=== PATIENT | female | born 1980 | race Caucasian/White ===

== ENCOUNTER → 2020-08-25 01:33 | Outpatient (CLI) | payer MEDICARE, MEDICAID, SELFPAY ==
[2020-08-25 18:53] LABS: SARS-CoV-2 RNA PCR Negative
== END ==
PROVIDERS: PCP Family Medicine; Visit Provider Internal Medicine Critical Care Medicine
DX: R68.89 Other general symptoms and signs (principal); Z20.822 Contact with and (suspected) exposure to COVID-19
CPT/HCPCS: C9803; U0003; U0005

== ENCOUNTER 2020-08-28 09:08 | Outpatient (CLI) | payer MEDICARE, MEDICAID, SELFPAY ==
--- NOTE | 2020-09-16 14:03 | WPDSLEEPSTUD ---
Sleep Study Date of Study: 08/28/20 Ordering Provider: Gorge Ovalle APRN Interpreting Physician: Joceline Stevenson MD Sleep Study Type: Split Polysomnogram Height: 1.45 m Weight: 67.807 kg Body Mass Index: 32.3 Neck Circumference (inches): 17 [place]: 15 Reason for Sleep Study Obstructive sleep apnea; needs to re-qualify for equipment; She is tired most of the time. 07/17/2014 BiPAP retitration; BMI was 40.9; pressures from / to a final pressure of 22/16 10/18/2013 BiPAP titration; final pressure / Sleep History Bianka Juares is a 40 year old female with known obstructive sleep apnea currently using BiPAP . She has Down syndrome. She lives in a facility and has been on BiPAP since 2008. She is compliant with treatment. She naps during the day. She uses Rozerem / ramelteon, a melatonin receptor agonist, to help with insomnia. She had her initial study years ago, and now is here for a repeat split night study as this was requested by [facility]. She was scheduled to have a titration, but this was switched to a split night. She occasionally snores and is occasionally loud enough for others to complain about it. She does not awaken at night with heartburn, belching or coughing. She does not awaken from sleep feeling short of breath. She rarely has trouble sleep with a cold. She does not gasp for breath at night and does not have breathing problems at night observed by others while wearing BiPAP. She frequently sweats excessively at night. She does not notice her heart pounding or beating irregular yearly at night. She frequently falls asleep during the day frequently involuntarily however she does not drive a car so this is not an issue. She does not fall asleep during physical effort. She does not have loss of muscle tone with strong emotion nor does she have daytime difficulties due to excessive sleepiness. She does not feel paralyzed on waking or falling asleep. She does not have vivid dreamlike scenes upon awakening or falling asleep. She does not feel afraid to go to sleep. She does not have nightmares nor does she remember her dreams. She frequently has racing thoughts. She denies feeling sad, depressed or anxious. She does not have muscular tension. She does not notice parts of her body jerking although she does occasionally kick at night. She does not have crawling or aching feelings in her legs and does not have any kind of leg pain during the night. She does not have morning jaw pain and does not grind her teeth during sleep. She is not bothered by pain during the day, is not awakened by pain during the night and does not wake up feeling stiff in the morning with sore muscles or spine pain. She has memory problems. Her normal bedtime is 11:00 p.m., falling asleep quickly, waking several times in the middle of the night. When she wakes, she may stay awake for a while. She gets on average 5 hours of sleep at night. She wakes in the morning at 5:00 a.m.. She estimates getting 5 hours of sleep at night. She takes naps. A short nap is not refreshing. She is drowsy after waking for 3 hours of longer. She feels better in the evening compared to the early part of the day. Habits: No tobacco. Caffeine: 4-5 servings a day. No alcohol or recreational drugs. 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
[2020-09-16 15:43] VITALS: BMI 32.3
== END 2020-08-28 09:09 | disposition home or self-care (01) ==
LOC: ANHCSM 09:09
PROVIDERS: PCP Family Medicine; Visit Provider Nurse Practitioner Family
DX: G47.33 Obstructive sleep apnea (adult) (pediatric) (principal)
CPT/HCPCS: 95811

== ENCOUNTER 2024-02-19 08:16 | Outpatient (CLI) | payer MEDICARE, MEDICAID, SELFPAY ==
--- NOTE | ~2024-02-19 | MM_ITS ---
EXAMINATION: MM screening rory BI w fredrick HISTORY: Screening TECHNIQUE: Craniocaudal and mediolateral oblique 3-D tomosynthesis images were obtained and synthetic 2-D images were generated. CAD analysis was submitted and interpreted. COMPARISON: No prior mammogram is available for comparison at this institution. BREAST PARENCHYMAL COMPOSITION: Not Dense: The breasts are almost entirely fatty. FINDINGS: There is no evidence of suspicious mass, calcification, or architectural distortion to sugg est malignancy in either breast. There has been no suspicious interval change. IMPRESSION: 1. No mammographic evidence of malignancy. 2. Recommend routine screening mammography in one year. BI-RADS Category 1: Negative Reviewed, dictated and finalized at location B.
== END 2024-02-19 08:17 | disposition home or self-care (01) ==
LOC: ANHIMG 08:24
PROVIDERS: Visit Provider Family Medicine
DX: Z12.31 Encounter for screening mammogram for malignant neoplasm of breast (principal)
CPT/HCPCS: 77063; 77067